=== PATIENT | male | born 1990 | race Two or more races ===

== ENCOUNTER 2024-09-18 05:51 | Emergency (ER) | payer SELFPAY ==
[2024-09-18 05:53] VITALS: BMI 29.8
[2024-09-18 06:03] VITALS: BP 121/80; PULSE 83; RESP 19; TEMP 36.4; O2SAT 98
--- NOTE | 2024-09-18 06:05 | XR_ITS ---
Examination: CT abdomen and pelvis without contrast. Coronal 3-D reconstructions. Sagittal 2-D reconstructions. Date and time of exam:September 18, 2024 0657 hours INDICATIONS: Onset epigastric pain nausea and vomiting today CTDI: vol (mGy): 7.45 DLP: (mGycm): (43012) Technique: Axial images of the abdomen have been obtained, 3 mm slice thickness Intravenous contrast material has not been administered. Low dose protocols were performed. One or more of the following dose reduction techniques were used; automated exposure control, adjustment of the mA and/or KV according to patient size, use of iterative reconstruction technique. Findings: No focal liver or splenic lesions No gallstones No renal or ureteral calculi, no hydronephrosis Appendix is fluid-filled and thickened measuring 7 mm with findings suspicious for early periappendiceal inflammatory change Urinary bladder intact IMPRESSION: Recommend repeating this study with intravenous contrast to confirm early acute appendicitis
--- NOTE | 2024-09-18 06:09 | EDNOTE_ITS ---
ED Abdominal Pain RME/HPI General Chief Complaint: Nausea/Vomiting/Diarrhea Stated complaint: NAUSEA VOMITING AND ABD PAIN Time seen by provider: 09/18/24 05:55 Arrival date/time: 09/18/24 05:51 34-year-old male presents emergency department today for complaints of abdominal pain nausea vomiting which began last night. There are no other associated symptoms or aggravating factors no other modifying factors, patient denies taking medication before coming to ER today Limitations: no limitations Related Data Home Medications ?Medication ?Instructions ?Recorded ?Confirmed Levothyroxine * (SYNTHROID *) ##30 03/22/17 07/06/17 phenytoin sodium extended 100 mg 100 mg PO BID ##30 07/06/17 capsule Allergies Allergy/AdvReac Type Severity Reaction Status Date / Time NKA* Allergy Uncoded 09/18/24 05:59 Review of Systems Review of Systems Systems Reviewed: All systems reviewed, normal except as documented Constitutional Constitutional: Reports system reviewed and no additional complaints, except as documented, Denies fever(s) and Denies headache(s) Eyes Eyes: Reports system reviewed and no additional complaints, except as documented and Denies blurry vision ENT Ears, Nose, Mouth, and Throat: Reports system reviewed and no additional complaints, except as documented, Denies headache(s), Denies nasal congestion and Denies nasal discharge Cardiovascular Cardiovascular: Reports system reviewed and no additional complaints, except as documented, Denies chest pain and Denies dyspnea Respiratory Respiratory: Reports system reviewed and no additional complaints, except as documented, Denies chest congestion, Denies cough and Denies dyspnea Gastrointestinal Gastrointestinal: Reports system reviewed and no additional complaints, except as documented, Reports abdominal pain, Denies loose stools and Reports nausea Integumentary/Breasts Skin/Breast: Reports system reviewed and no additional complaints, except as documented and Denies rash Neurologic Neurologic: Reports system reviewed and no additional complaints, except as documented, Reports as per HPI and Denies headache(s) Past Medical History Past Medical History CARDIAC: Negative Congestive Heart Failure RESPIRATORY: Negative Chronic Obstructive Pulmonary Disease (COPD) GENITOURINARY: Negative Renal Disease ENDOCRINE: Negative Diabetes Mellitus Type 1 or Diabetes Mellitus Type 2 Social History SMOKING STATUS: Current some day smoker ED Exam General Limitations: Present no limitations General appearance: Present alert and in no apparent distress Head Head exam: Present atraumatic, normocephalic and normal inspection Eye Eye exam: Present normal appearance, PERRL and EOMI; Absent conjunctival injection ENT ENT exam: Present normal exam, normal oropharynx and mucous membranes moist Neck Neck exam: Present normal inspection, full ROM and trachea midline Chest Chest inspection: Present normal inspection and symmetric chest wall rise Respiratory Respiratory exam: Present normal lung sounds bilaterally; Absent respiratory distress Cardiovascular Cardiovascular exam: Present regular rate, normal rhythm and normal heart sounds Abdominal Exam Abdominal exam: Present soft, tenderness and normal bowel sounds; Absent distention, guarding, rebound or rigidity Abdominal tenderness: Present RUQ, epigastrium, suprapubic and mild Extremities Exam Extremities exam: Present normal inspection and full ROM Back Exam Back exam: Present normal inspection and full ROM Neurological Exam Neurological exam: Present alert, oriented X3 and CN II-XII intact Psychiatric Psychiatric exam: Present normal affect and normal mood Skin Skin exam: Present warm, dry, intact and normal color Course Quality Measures none Orders Category Date Time Status COVID-19 Screening Questionnaire NOW Care 09/18/24 11:[address] Screening NOW Care 09/18/24 08:32 Completed Decision to Admit X1 Care 09/18/24 11:35 Completed Insert IV NOW Care 09/18/24 08:[address] abdomen pelvis w con Stat Exams 09/18/24 08:[address] abdomen pelvis wo con Stat Exams 09/18/24 06:05 Completed CBC Stat Lab 09/18/24 07:22 Completed Comprehensive Metabolic Panel Stat Lab 09/18/24 07:22 Completed Lipase Stat Lab 09/18/24 07:22 Completed Troponin I Stat Lab 09/18/24 07:22 Completed UA, C/S IF [Urinalysis, C/S if Indicated] Stat Lab 09/18/24 06:35 Completed Famotidine [Pepcid] Med 09/18/24 06:05 Discontinued 20 mg PO X1 ONE HYDROcodone*/APAP 5/325 [[place] 5/325] Med 09/18/24 08:01 Discontinued 1 tab PO X1 ONE Ibuprofen Tab [Motrin Tab] Med 09/18/24 08:01 Discontinued 800 mg PO X1 ONE Lidocaine 2% Viscous [Xylocaine 2% Viscous] Med 09/18/24 06:05 Discontinued 15 ml PO X1 ONE Morphine Inj Med 09/18/24 08:31 Discontinued 4 mg IVP X1 ONE Ondansetron Inj [Zofran Inj] Med 09/18/24 08:31 Discontinued 4 mg IVP X1 ONE Sodium Chloride 0.9% 250 ml [Ns] 250 ml Med 09/18/24 08:32 Discontinued IV 999 mls/hr mg Hyd/Al Hyd/José Luis Susp [Maalox Susp] Med 09/18/24 06:05 Discontinued 30 ml PO X1 ONE Vital Signs Vital signs: Vital Signs Temperature 97.5 F 09/18/24 06:03 Pulse Rate 83 09/18/24 06:03 Respiratory Rate 19 09/18/24 06:03 Blood Pressure 121/80 09/18/24 06:03 Pulse Oximetry (%) 98 09/18/24 06:03 Oxygen Delivery Method Room Air 09/18/24 06:03 O2 saturation 98% on room air with normalized Abdominal Pain MDM MDM Narrative MDM Narrative:: 34-year-old male presents emergency department today for complaints of abdominal pain nausea vomiting which began last night. There are no other associated symptoms or aggravating factors no other modifying factors, patient denies taking medication before coming to ER today On exam patient well-appearing patient does not appear ill or toxic and in no acute distress patient has soft nontender abdomen Lab work and imaging obtained CT without contrast indeterminate therefore CT with contrast ordered CT with contrast consistent with early appendicitis As patient has elevated WBC count as well as abnormal CT findings and tenderness to palpation I do believe patient has appendicitis Consultation: I spoke with Dr. Randolph who will come evaluate the patient Per Dr. Randolph she came to evaluate the patient she reports she does not believe the patient has appendicitis and the patient can be discharged home I explained to the patient I would like him to return in 24 hours for reevaluation patient states he will return reevaluation Patient data External records reviewed:: [facility] previous records Clinical information provided by:: patient Social determinants that could affect healthcare access:: none Patient has the following chronic illnesses:: None How is presenting disease/condition affected by chronic disease/condition?: no chronic disease Evaluation data The following diagnostics were reviewed and interpreted by me:: lab results and radiology exam(s) Lab and/or radiology exams considered but not ordered:: Labs radiology obtain Interpretation Summary: Reviewed by me Medications / Prescriptions Medications or Prescriptions considered but not ordered:: Given Medication administrations:: Medication Administration History Discontinued Medications Hydrocodone Bitart/Acetaminophen (Hydrocodone/Apap 5/325 Tablet) 1 tab PO X1 ONE Stop: 09/18/24 08:02 Last Admin: 09/18/24 08:05 Dose: 1 tab Documented By: RUPERTO Al Hydrox/Mg Hydrox/Simethicone (Mg Hyd/Al Hyd/José Luis (Maalox Reg) Susp 30 Ml Udc) 30 ml PO X1 ONE Stop: 09/18/24 06:06 Last Admin: 09/18/24 06:23 Dose: 30 ml Documented By: KELLY Famotidine (Famotidine 20 Mg Tablet) 20 mg PO X1 ONE Stop: 09/18/24 06:06 Last Admin: 09/18/24 06:23 Dose: 20 mg Documented By: KELLY Sodium Chloride (Ns) 250 mls @ 999 mls/hr IV .Q16M ONE Stop: 09/18/24 08:47 Last Infusion: 09/18/24 11:02 Dose: Infused Documented By: Admin: 09/18/24 09:30 Dose: 999 mls/hr Documented By: CUCO Ibuprofen (Ibuprofen Tab 400 Mg Tablet) 800 mg PO X1 ONE Stop: 09/18/24 08:02 Last Admin: 09/18/24 08:05 Dose: 800 mg Documented By: RUPERTO Lidocaine HCl (Lidocaine Viscous 2% 15 Ml Udc) 15 ml PO X1 ONE Stop: 09/18/24 06:06 Last Admin: 09/18/24 06:23 Dose: 15 ml Documented By: KELLY Morphine Sulfate (Morphine Sulf Inj 10 Mg/Ml Vial) 4 mg IVP X1 ONE Stop: 09/18/24 08:32 Last Admin: 09/18/24 09:26 Dose: Not Given Documented By: CUCO Non-Admin Reason: Patient Refused Ondansetron HCl (Ondansetron Inj 2 Mg/Ml Inj 2 Ml) 4 mg IVP X1 ONE; Protocol Stop: 09/18/24 08:32 Last Admin: 09/18/24 09:26 Dose: Not Given Documented By: CUCO Non-Admin Reason: Patient Refused Given Consultations Consultation(s) initiated? (list below): Yes Consultation #1 (Physician, Specialty, Details): Dr. Randolph Diagnosis Differential diagnosis abdominal pain: abdominal pain, acute appendicitis, pancreatitis and small bowel obstruction Most likely diagnosis given after review of the tests above:: Appendicitis Admission Indicated Admission indicated?: indicated Admission Request Was there a request for admission?: Yes Admission Attestation Admission request attestation: Discussed case with [] from Hospitalist service regarding admission. Discussed patients ED course, exam findings, labs, and radiology results. The Hospitalist [agrees,declines] to accept the patient for admission. Disposition Plan Disposition Plan: Admit Discharge Plan Plan Patient Disposition: HOME (Self Care) Discharge Disposition comment: Stable Prescriptions/Referrals Prescriptions/Med Rec: No Action phenytoin sodium extended 100 MG capsule 100 mg PO BID Qty: 30 Levothyroxine * (SYNTHROID *) 100 MCG tablet Qty: 30 Referrals: No Primary/Family,Physician [Primary Care Provider] - 09/19/24 Problem List Clinical Impression: Abdominal pain Patient/Caregiver Discharge Instructions Additional Instructions: Please return in 24 hours for reevaluation for worsening symptoms or concerns return immediately Print Language: Yi Stand Alone Forms: Opal Award Info., Patient Portal Info Letter PA/ADAPTIVE PHYSICAL EDUCATION TEACHER Supervising Physician PA/ADAPTIVE PHYSICAL EDUCATION TEACHER Supervising Physician: Dr. Santos
[2024-09-18] MEDS: FAMOTIDINE 20 MG TABLET PO (06:23)
[2024-09-18] MEDS: MG HYD/AL HYD/SIME (Maalox Reg) SUSP 30 ML UDC PO (06:23)
[2024-09-18] MEDS: LIDOCAINE VISCOUS 2% 15 ML UDC PO (06:23)
[2024-09-18 06:38] LABS: Collection Type, Urine Clean Catch
[2024-09-18 07:05] LABS: Bilirubin,Urine Negative (Negative); Blood,Urine Negative (Negative); Clarity,Urine Clear (Clear/Hazy); Color,Urine Lt-Yellow (Lt Yel-Yel); Culture Indicated,Urine Not Indicated; Glucose, Urine Negative (Negative); Ketones,Urine Negative (Negative); Leukocyte Esterase,Urine Negative (Negative); Nitrite,Urine Negative (Negative); Protein,Urine Negative (Neg - Trace); RBC,Urine 1 /hpf (0-3); Specific Gravity,Urine 1.028 (1.001-1.035); Squamous Epithelial Cell,Urine < 1 /hpf (0-5); Urobilinogen,Urine Negative mg/dL (0.0-1.0); WBC,Urine < 1 /hpf (0-5)
[2024-09-18 07:50] LABS: Basophils # (Auto) 0.1 Thou/mm3 (0.0-0.2); Basophils % (Auto) 0 % (0-2.5); Eosinophils # (Auto) 0.2 Thou/mm3 (0.0-0.5); Eosinophils % (Auto) 1 % (0-10); Hematocrit 44.6 % (41.0-53.0); Hemoglobin 15.4 g/dL (13.5-16.0); Immature Granulocytes % (Auto) 0 % (0-0); Immature Granulocytes Auto 0.07 Thou/mm3 (0.00-0.00); Lymphocytes # (Auto) 1.8 Thou/mm3 (1.0-4.8); Lymphocytes % (Auto) 11 % (10-50); Mean Corpuscular HGB Conc 34.5 g/dl (31.0-37.0); Mean Corpuscular Hemoglobin 30.6 pg (25.0-35.0); Mean Corpuscular Volume 89 fL (80-100); Monocytes # (Auto) 1.2 Thou/mm3 (0.0-0.8); Monocytes % (Auto) 7 % (0-12); Neutrophils # (Auto) 13.5 Thou/mm3 (1.8-7.7); Neutrophils % (Auto) 81 % (37-80); Nucleated Red Blood Cell % 0 /100 WBC (0); Platelet Count 284 Thou/mm3 (140-440); RDW Standard Deviation 42.8 fL (35.1-43.9); Red Blood Count 5.04 Miln/mm3 (4.50-5.90); White Blood Count 16.7 Thou/mm3 (3.8-10.6)
[2024-09-18 07:58] VITALS: BP 135/86; PULSE 58; RESP 16; TEMP 36.6; O2SAT 99
[2024-09-18] MEDS: HYDROcodone/APAP 5/325 TABLET 1 TAB PO (08:05)
[2024-09-18] MEDS: IBUPROFEN TAB 400 MG TABLET 800 MG PO (08:05)
[2024-09-18 08:09] LABS: Alanine Aminotransferase 16 U/L (10-49); Albumin, Serum 4.7 gm/dL (3.5-5.0); Albumin/Globulin Ratio 1.7 (1.2-2.2); Alkaline Phosphatase 70 U/L (46-116); Anion Gap 9 (7-16); Aspartate Amino Transferase 20 U/L (0-34); BUN/Creatinine Ratio 19 Ratio (12-20); Bilirubin,Total 0.6 mg/dL (0.3-1.2); Blood Urea Nitrogen 15 mg/dL (9-23); Calcium 9.5 mg/dL (8.3-10.6); Calcium (Corrected) 9.5 mg/dL (8.5-10.1); Carbon Dioxide 26.1 mMol/L (20.0-31.0); Chloride 103 mMol/L (98-107); Creatinine (Component) 0.8 mg/dL (0.6-1.3); Estimated Creatinine Clearance 132.2 mL/min (>60); Globulin 2.8 gm/dL (2.3-3.5); Glucose 107 mg/dL (74-106); Osmolality,Calculated 276 (275-295); Sodium 138 mMol/L (136-145); Total Protein 7.5 gm/dL (5.7-8.2); Troponin I < 0.002 ng/mL (0.0-0.045); eGFR > 60 See Note
[2024-09-18 08:20] LABS: Lipase 52 U/L (12-53)
--- NOTE | 2024-09-18 08:31 | XR_ITS ---
Examination: CT abdomen with intravenous contrast CT pelvis with intravenous contrast 2-D coronal reconstructions 2-D sagittal reconstructions Date and time of exam:September 18, 2024 1014 hours Comparison September 18, [address] abdomen and pelvis without contrast. CTDI: vol (mGy) 7.33 DLP: (mGycm) 115 Technique: Multiple axial sections of the abdomen and pelvis have been obtained. 64 slice high-resolution scanner used. 3 mm axial sections have been obtained, post intravenous injection 60 cc [id number] 2-D sagittal, coronal reconstructions obtained. Low dose protocols were performed. One or more of the following dose reduction techniques were used; automated exposure control, adjustment of the mA and/or KV according to patient size, use of iterative reconstruction technique. Findings: No focal liver or splenic lesions No gallstones No pancreatic mass No renal or ureteral calculi, no hydronephrosis Aorta normal size Appendix is thickened, up to 8 mm, fluid-filled with minimal periappendiceal inflammatory change No pelvic abscess Urinary bladder intact IMPRESSION: The appendix is fluid-filled and thickened up to 8 mm with minimal periappendiceal inflammatory change Consider early acute appendicitis, the appearance should be clinically correlated
[2024-09-18 09:03] VITALS: BP 129/73; PULSE 60; RESP 19; TEMP 36.6; O2SAT 98
--- NOTE | 2024-09-18 09:27 | PC.NURSE ---
Pt did not want to take morphine at this time
[2024-09-18] MEDS: SODIUM CHLORIDE 0.9% 250 ML 250 ML 999 ML IV (09:30)
[2024-09-18 14:20] VITALS: BP 124/76; PULSE 88; RESP 17; TEMP 37.2; O2SAT 98
[2024-09-18 15:23] VITALS: BP 91/43; PULSE 68; RESP 14; TEMP 36.6; O2SAT 95
== END 2024-09-18 15:30 | disposition home or self-care (01) ==
PROVIDERS: Nurse Practitioner Primary Care; Emergency Provider Emergency Medicine
DX: R10.9 Unspecified abdominal pain (principal); R11.2 Nausea with vomiting, unspecified
CPT/HCPCS: 36415; 74176; 74177; 80053; 81001; 83690; 84484; 85025; 96360; 96361; 99285; A4649; J3490; J7050; Q9967; A9270

== ENCOUNTER 2024-09-19 13:16 | Emergency (ER) | payer MEDICAID, SELFPAY ==
[2024-09-19 13:17] VITALS: BMI 29.0
[2024-09-19 13:27] VITALS: BP 127/72; PULSE 89; RESP 18; TEMP 36.9; O2SAT 98
--- NOTE | 2024-09-19 13:44 | PD.EDABDPN ---
ED Abdominal Pain RME/HPI General Chief Complaint: Abdominal Pain Stated complaint: RECHECK FROM YESTERDAY VISIT ABD PAIN Time seen by provider: 09/19/24 13:44 Arrival date/time: 09/19/24 13:16 34-year-old male seen by myself yesterday for abdominal pain was instructed to return today for reevaluation Limitations: no limitations Related Data Home Medications ?Medication ?Instructions ?Recorded ?Confirmed Levothyroxine * (SYNTHROID *) ##30 03/22/17 07/06/17 phenytoin sodium extended 100 mg 100 mg PO BID ##30 03/22/17 07/06/17 capsule Allergies Allergy/AdvReac Type Severity Reaction Status Date / Time No Known Allergies Allergy Verified 09/19/24 13:20 Review of Systems Review of Systems Systems Reviewed: All systems reviewed, normal except as documented Constitutional Constitutional: Reports system reviewed and no additional complaints, except as documented, Denies fever(s) and Denies headache(s) Eyes Eyes: Reports system reviewed and no additional complaints, except as documented and Denies blurry vision ENT Ears, Nose, Mouth, and Throat: Reports system reviewed and no additional complaints, except as documented, Denies headache(s), Denies nasal congestion and Denies nasal discharge Cardiovascular Cardiovascular: Reports system reviewed and no additional complaints, except as documented, Denies chest pain and Denies dyspnea Respiratory Respiratory: Reports system reviewed and no additional complaints, except as documented, Denies chest congestion, Denies cough and Denies dyspnea Gastrointestinal Gastrointestinal: Reports system reviewed and no additional complaints, except as documented and Denies abdominal pain Integumentary/Breasts Skin/Breast: Reports system reviewed and no additional complaints, except as documented and Denies rash Neurologic Neurologic: Reports system reviewed and no additional complaints, except as documented, Reports as per HPI and Denies headache(s) Past Medical History Past Medical History NEUROLOGIC: Negative Neurological Disorders CARDIAC: Negative Cardiac Disorders ED Exam General Limitations: Present no limitations General appearance: Present alert and in no apparent distress Head Head exam: Present atraumatic Eye Eye exam: Present normal appearance, PERRL and EOMI ENT ENT exam: Present normal exam, normal oropharynx and mucous membranes moist Neck Neck exam: Present normal inspection, full ROM and trachea midline Chest Chest inspection: Present normal inspection and symmetric chest wall rise Respiratory Respiratory exam: Present normal lung sounds bilaterally Cardiovascular Cardiovascular exam: Present regular rate, normal rhythm and normal heart sounds Abdominal Exam Abdominal exam: Present soft and normal bowel sounds; Absent distention, tenderness, guarding, rebound, rigidity, Erickson's sign or tenderness at McBurney's Point Abdominal tenderness: Absent RUQ or RLQ Extremities Exam Extremities exam: Present normal inspection and full ROM Back Exam Back exam: Present normal inspection and full ROM Neurological Exam Neurological exam: Present alert, oriented X3 and CN II-XII intact Psychiatric Psychiatric exam: Present normal affect and normal mood Skin Skin exam: Present warm, dry, intact and normal color Course Quality Measures none Vital Signs Vital signs: Vital Signs Temperature 98.4 F 09/19/24 13:27 Pulse Rate 89 09/19/24 13:27 Respiratory Rate 18 09/19/24 13:27 Blood Pressure 127/72 09/19/24 13:27 Pulse Oximetry (%) 98 09/19/24 13:27 Oxygen Delivery Method Room Air 09/19/24 13:27 O2 saturation 98% on room air within the limits Abdominal Pain MDM MDM Narrative MDM Narrative:: 34-year-old male seen by myself yesterday for abdominal pain was instructed to return today for reevaluation Patient reports abdominal pain is resolved patient reports he ate [employer] today Patient reports no abdominal tenderness whatsoever patient has no Erickson sign no McBurney's point tenderness Patient hemodynamically stable reports no vomiting no fever Patient discharged home in no distress to follow-up with primary care doctor in the next 24 to 48 hours and for any worsening symptoms to return to the ER immediately I encouraged patient to return for any worsening symptoms Patient data External records reviewed:: [facility] previous records Clinical information provided by:: patient Social determinants that could affect healthcare access:: none Patient has the following chronic illnesses:: None How is presenting disease/condition affected by chronic disease/condition?: no chronic disease Evaluation data The following diagnostics were reviewed and interpreted by me:: lab results and radiology exam(s) Lab and/or radiology exams considered but not ordered:: Labs and radiology reviewed from yesterday Interpretation Summary: Reviewed by me Medications / Prescriptions Medications or Prescriptions considered but not ordered:: No meds Medication administrations:: No meds Consultations Consultation(s) initiated? (list below): No Diagnosis Differential diagnosis abdominal pain: abdominal pain, acute appendicitis, calculus of kidney, pancreatitis and small bowel obstruction Most likely diagnosis given after review of the tests above:: Abdominal pain resolved Admission Indicated Admission indicated?: not indicated Admission Request Was there a request for admission?: No Disposition Plan Disposition Plan: Discharge Discharge Attestation Discharge Attestation: The patient and all family members were given an opportunity to ask questions and understood the discharge instructions. Discharge instructions specifically effects, indications for sooner follow up or return to the emergency department, and the expected course of current diagnosis. Patient condition: Stable Discharge Plan Plan Patient Disposition: HOME (Self Care) Discharge Disposition comment: Stable Prescriptions/Referrals Prescriptions/Med Rec: No Action phenytoin sodium extended 100 MG capsule 100 mg PO BID Qty: 30 Levothyroxine * (SYNTHROID *) 100 MCG tablet Qty: 30 Problem List Clinical Impression: Abdominal pain Patient/Caregiver Discharge Instructions Education Materials: Abdominal Pain Additional Instructions: Please follow up with your primary care doctor in the next 24-48hrs for any worsening symptoms return here immediately Print Language: Mohawk Stand Alone Forms: Opal Award Info., Patient Portal Info Letter PA/GABBY Supervising Physician ISSA/GABBY Supervising Physician: Dr. peterson
== END 2024-09-19 14:10 | disposition home or self-care (01) ==
LOC: SERX 13:54
PROVIDERS: Emergency Provider Emergency Medicine; PCP Family Medicine
DX: R10.9 Unspecified abdominal pain (principal)
CPT/HCPCS: 99281